=== PATIENT | female | born 1980 | race Two or more races ===

== ENCOUNTER 2019-10-09 20:46 | Emergency (ER) | payer SELFPAY ==
[~2019-10-09] VITALS: Ht 162.6 cm; Wt 99.8 kg
[2019-10-09 21:00] VITALS: BP 140/99
[2019-10-09 22:47] LABS: Urine Bacteria FEW /hpf (None Seen); Urine Blood Negative /uL (Negative); Urine Mucus MODERATE (None Seen); Urine Specific Gravity 1.027 (1.001-1.035); Urine WBC 3 /hpf (0 - 5)
== END 2019-10-09 22:40 | disposition left against medical advice (07) ==
LOC: ER 20:46 → EDSEX 20:46 → ER 22:40
DX: M54.5 Low back pain (principal); Z53.21 Procedure and treatment not carried out due to patient leaving prior to being seen by health care provider
CPT/HCPCS: 81001